=== PATIENT | female | born 1995 | race Caucasian/White ===

== ENCOUNTER 2023-12-10 07:12 | Day surgery (SDC) | payer OTHER ==
[~2023-12-10] VITALS: Ht 167.6 cm; Wt 75.9 kg
[~2023-12-10 07:12] MED LIST: Lactated Ringer's 1,000 ML IV ONE
[2023-12-10] MEDS ORDERED: CITALOPRAM HBR20 M9 PO (07:41)
[2023-12-10] MEDS ORDERED: ZYRTEC10 M2 PO (07:47)
[2023-12-10] MEDS ORDERED: Lactated Ringer's 1,000 ML IV ONE ×2 (07:58)
[2023-12-10] MEDS ORDERED: FentaNYL Citrate 50 MCG/ML 2 ML Injection ONE ×2 (08:18→10:28)
[2023-12-10] MEDS ORDERED: Rocuronium Bromide 10 MG/ML 5ML Injection IV ONE (08:18)
[2023-12-10] MEDS ORDERED: Ondansetron HCl 2 MG / ML 2ML Vial ONE ×2 (08:18→10:27)
[2023-12-10] MEDS ORDERED: Dexamethasone Sod Phos 10 MG/ML 1ML VIAL ONE (08:18)
[2023-12-10] MEDS ORDERED: Sugammadex Sodium 200 MG/2ML SDV (100 MG/ML) ONE (08:18)
[2023-12-10] MEDS ORDERED: Ketorolac Tromethamine 30mg Vial ONE (08:18)
[2023-12-10] MEDS ORDERED: propofoL 20 ML IV ONE (08:18)
[2023-12-10] MEDS ORDERED: Midazolam HCl 1MG / ML 2ML Vial ONE (08:19)
[2023-12-10] MEDS ORDERED: Ropivacaine 0.5% HCL/PF 5 MG/ML 30ML Vial ONE (08:45)
--- NOTE | 2023-12-10 09:32 | NUR ---
12/10/23 0932 Margarita Arcos [facility].DXH WITH CHLORAHEXADINE.
[2023-12-10] MEDS ORDERED: EPINEPhrine HCl 1 MG/ML 1ML Amp XX ONE (09:49)
[2023-12-10] MEDS ORDERED: Acetaminophen 500 MG Tab ONE (11:08)
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
== END 2023-12-10 11:45 | disposition home or self-care (01) ==
LOC: ORSCSDS 07:12
PROVIDERS: Obstetrics & Gynecology
PROC: 0UT74ZZ Resection of Bilateral Fallopian Tubes, Percutaneous Endoscopic Approach (ICD-10-PCS; principal; 2023-12-10 08:30)
PROC: 0JPV0HZ Removal of Contraceptive Device from Upper Extremity Subcutaneous Tissue and Fascia, Open Approach (ICD-10-PCS; principal; 2023-12-10 08:30)
DX: Z30.9 Encounter for contraceptive management, unspecified (principal); Z45.89 Encounter for adjustment and management of other implanted devices; Z79.899 Other long term (current) drug therapy
CPT/HCPCS: 88302; A9270; J0171; J1100; J1885; J2250; J2405; J2704; J2795; J3010; J7120